=== PATIENT | female | born 1970 | race Caucasian/White ===

== ENCOUNTER 2017-09-18 19:02 | Inpatient (IN) | payer BC ==
[2017-09-18] MEDS ORDERED: Hydromorphone 1 mg/ml Ampule IV ONE (19:49)
[2017-09-18] MEDS ORDERED: Sodium Chloride 0.9% 1000 ML 1,000 ML IV STA (19:49)
[2017-09-18] MEDS ORDERED: Pepcid 20 MG VIAL IV ONE ×2 (19:49→20:10)
[2017-09-18] MEDS ORDERED: BENADRYL 50 MG/ML IV ONE (19:49)
[2017-09-18] MEDS ORDERED: FLAGYL 500 MG IVPB 500 MG/100 ML BAG IV STA (19:50)
[2017-09-18] MEDS ORDERED: Zosyn 3.375GM/100 Ml D5W 3.375 GM/100 ML IVPB IV STA (19:50)
--- NOTE | 2017-09-18 19:54 | ERPHSYRPT ---
- History of Present Illness Time Seen by Provider: 09/18/17 19:41 Historian: patient Patient Subjective Stated Complaint: Pt C/O left abd pain that is constant in nature x 2 days. Hx of diverticulitis and diverticulosis. Had surgery and removed approx 16" of intestine due to diverticulitits in 2011. Pt with 2 days of fever abd pain and nausea. Pt sts took ibuprofen for fever at 1700. Denies vomiting. Denies diarrhea. Last BM today. Does not feel like she is constipated. Reports last food intake 1100, last fluids 1800. Reports pain is 3/10 at present but does increase with certain movements to 8/10. Triage Nursing Assessment: Pt alert, oriented, answers all questions appropriately. Skin pink, warm, dry. Resps non-labored. Lung sounds clear all lazaro. ABD soft, mildly tender with palpation left abd. + bowel sounds x 4 quadrants. Physician History: CC: abd pain Hx: 47 y/o patient of Dr Chavez/Daphnie with hx of diverticulitis, prior bowel resection, hysterectomy. She has 3 day hx of worsened left sided abd pain, sharp , now feverish. No blood in stool. Pain worse and moderately severe. No vomiting. Normal urination. 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 Timing/Duration: day(s) (3) Severity of Pain-Max: moderate Severity of Pain-Current: moderate Allergies/Adverse Reactions: tetracycline [Tetracycline] Allergy (Intermediate, Verified 09/18/17 19:48) Home Medications: Sertraline HCl 100 mg [Zoloft 100 MG] 100 mg PO HS 02/18/12 [History] Topiramate [Topamax] 100 mg PO BID 07/22/12 [History] Alprazolam 0.25 mg [xanAX 0.25 MG] 0.25 mg PO BID PRN PRN 07/23/12 [ History] Levothyroxine Sodium 25 mg PO DAILY 09/18/17 [History] Losartan Potassium [Losartan Potassium] 1 tab PO DAILY 09/18/17 [History] Ranitidine HCl 150 mg PO BID 09/18/17 [History] Hx Tetanus, Diphtheria Vaccination/Date Given: Yes Hx Influenza Vaccination/Date Given: No Hx Pneumococcal Vaccination/Date Given: No Immunizations Up to Date: Yes - Review of Systems Constitutional: Fever, Chills, Fatigue, Malaise Eyes: No Symptoms Ears, Nose, & Throat: No Symptoms Respiratory: No Cough, No Dyspnea Cardiac: No Chest Pain Abdominal/Gastrointestinal: Abdominal Pain, Nausea, No Vomiting, No Diarrhea, No Constipation Genitourinary Symptoms: No Dysuria, No Hematuria Musculoskeletal: No Back Pain Skin: No Rash Neurological: No Headache All Other Systems: Reviewed and Negative - Past Medical History Pertinent Past Medical History: Yes Neurological History: Migraines, Seizures, Other ENT History: No Pertinent History Cardiac History: Hypertension Respiratory History: No Pertinent History Endocrine Medical History: No Pertinent History Musculoskeletal History: No Pertinent History GI Medical History: Colitis, Diverticulitis, Other History: No Pertinent History Psycho-Social History: No Pertinent History Female Reproductive Disorders: Other Other Medical History: MASS ON RIGHT OVARY, left oophorectomy, insulin resistant , hashimotos - Past Surgical History Past Surgical History: Yes Neuro Surgical History: No Pertinent History Cardiac: No Pertinent History Respiratory: No Pertinent History Gastrointestinal: Appendectomy, Cholecystectomy, Colon Resection Genitourinary: No Pertinent History Musculoskeletal: No Pertinent History Female Surgical History: Section, Hysterectomy, Other Other Surgical History: 2 MASSES OFF UTERUS left oophorectomy - Social History Smoking Status: Never smoker Exposure to second hand smoke: No Drug Use: none Patient Lives Alone: No - Female History Hx Last Menstrual Period: partial hyst Hx Now: No - Nursing Vital Signs Nursing Vital Signs: Initial Vital Signs Temperature 102.2 F 09/18/17 19:36 Pulse Rate 115 H 09/18/17 19:36 Respiratory Rate 20 09/18/17 19:36 Blood Pressure 145/88 09/18/17 19:36 O2 Sat by Pulse Oximetry 97 09/18/17 19:36 Pain Scale Pain Intensity 2 - Physical Exam General Appearance: alert Eye Exam: PERRL/EOMI, No scleral icterus Ears, Nose, Throat Exam: normal ENT inspection, moist mucous membranes Neck Exam: normal inspection, non-tender, supple Respiratory Exam: normal breath sounds Cardiovascular Exam: regular rate/rhythm Gastrointestinal/Abdomen Exam: soft, tenderness (left sided with guarding) Back Exam: normal inspection, No CVA tenderness Extremity Exam: normal inspection, normal range of motion Neurologic Exam: alert, oriented x 3, cooperative, sensation nml, No motor deficits Skin Exam: warm, dry, No rash SpO2 Interpretation: normal SpO2: 99 Oxygen Delivery: Room Air - Course Nursing assessment & vital signs reviewed: Yes EKG Interpreted by Me: RATE (94), Sinus Rhythm, NORMAL AXIS, NORMAL INTERVALS ( [id number]), NORMAL QRS, NORMAL ST-T - Radiology Exams cxr X-ray Interpretation: Interpreted by me, Negative Ordered Tests: Active Orders 24 hr Category Date Time Status Clean Catch Urine Specimen STAT Care 09/18/17 19:49 Active EKG-ER Only STAT Care 09/18/17 19:49 Active IV Insertion STAT Care 09/18/17 19:49 Active NPO (ED) STAT Care 09/18/17 19:49 Active ABDOMEN AND PELVIS W CONTRAST [CT] Stat Exams 09/18/17 19:49 Taken CHEST 2 VIEWS (PA AND LAT) Stat Exams 09/18/17 19:49 Taken BLOOD CULTURE Stat Lab 09/18/17 20:13 Received CBC W DIFF Stat Lab 09/18/17 20:13 Completed CMP Stat Lab 09/18/17 20:13 Completed LIPASE Stat Lab 09/18/17 20:13 Completed Lactic Acid Stat Lab 09/18/17 20:05 Completed PROTIME WITH INR Stat Lab 09/18/17 20:13 Received PTT Stat Lab 09/18/17 20:13 Received UA W/ MICROSCOPIC Stat Lab 09/18/17 20:13 Completed Medication Summary Discontinued Medications Generic Name Dose Route Start Last Admin Trade Name Freq PRN Reason Stop Dose Admin Acetaminophen 975 mg 09/18/17 20:12 09/18/17 20:48 Feverall 650 Mg OK 09/18/17 20:13 975 mg STAT STA Administration Acetaminophen Confirm 09/18/17 20:46 Feverall 650 Mg Administered 09/18/17 20:47 Dose 1,300 mg .ROUTE .STK-MED ONE Diphenhydramine HCl 25 mg 09/18/17 19:49 09/18/17 20:29 Benadryl 50 Mg/Ml IV 09/18/17 19:50 25 mg STAT ONE Administration Diphenhydramine HCl Confirm 09/18/17 20:10 Benadryl 50 Mg/Ml Administered 09/18/17 20:11 Dose 50 mg .ROUTE .STK-MED ONE Famotidine 20 mg 09/18/17 19:49 09/18/17 20:38 Pepcid 20 Mg Vial IV 09/18/17 19:50 20 mg STAT ONE Administration Famotidine Confirm 09/18/17 20:10 Pepcid 20 Mg Vial Administered 09/18/17 20:11 Dose 20 mg IV .STK-MED ONE Hydromorphone HCl 1 mg 09/18/17 19:49 09/18/17 20:36 Hydromorphone 1 Mg/Ml Ampule IV 09/18/17 19:50 1 mg STAT ONE Administration Hydromorphone HCl Confirm 09/18/17 20:10 Hydromorphone 1 Mg/Ml Ampule Administered 09/18/17 20:11 Dose 1 mg .ROUTE .STK-MED ONE Metronidazole 500 mg in 100 mls @ 200 mls/hr 09/18/17 19:50 09/18/17 21:30 Flagyl 500 Mg Ivpb IV 09/18/17 20:19 200 mls/hr STAT STA Administration Sodium Chloride 1,000 mls @ 999 mls/hr 09/18/17 19:49 09/18/17 20:26 Sodium Chloride 0.9% 1000 Ml IV 09/18/17 20:49 999 mls/hr .Q1H1M STA Administration Piperacillin Sod/Tazobactam Sod 3.375 gm in 100 mls @ 200 mls/hr 09/18/17 19: 50 09/18/17 20:35 Zosyn 3.375gm/100 Ml D5w IV 09/18/17 20:19 200 mls/hr STAT STA Administration Sodium Chloride Confirm 09/18/17 20:10 Sodium Chloride 0.9% 1000 Ml Administered 09/18/17 20:11 Dose 1,000 mls @ ud .ROUTE .STK-MED ONE Piperacillin Sod/Tazobactam Sod Confirm 09/18/17 20:11 Zosyn 3.375gm/100 Ml D5w Administered 09/18/17 20:12 Dose 3.375 gm in 100 mls @ ud IV .STK-MED ONE Metronidazole Confirm 09/18/17 20:11 Flagyl 500 Mg Ivpb Administered 09/18/17 20:12 Dose 500 mg in 100 mls @ ud IV .STK-MED ONE Lab/Rad Data: Laboratory Result Diagrams 09/18/17 20:13 09/18/17 20:13 Laboratory Results 09/18/17 09/18/17 09/18/17 Range/Units 20:13 20:13 20:13 WBC 11.7 H (4.0-10.5) K/mm3 RBC 4.37 (4.1-5.4) M/mm3 Hgb 12.9 (12.0-16.0) gm/dl Hct 39.1 (35-47) % MCV 89.5 (78-100) fl MCH 29.5 (26-32) pg MCHC 33.0 (32-36) g/dl RDW 13.4 (11.5-14.0) % Plt Count 252 (150-450) K/mm3 MPV 10.4 H (6-9.5) fl Gran % 70.5 H (36.0-66.0) % Lymphocytes % 21.4 L (24.0-44.0) % Monocytes % 7.0 (0.0-12.0) % Eosinophils % 1.0 (0.00-5.0) % Basophils % 0.1 (0.0-0.4) % Basophils # 0.01 (0-0.4) Sodium 139 (136-145) mEq/L Potassium 3.8 (3.5-5.1) mEq/L Chloride 103 (98-107) mEq/L Carbon Dioxide 26.2 (21-32) mEq/L Anion Gap 13.4 (5-15) MEQ/L BUN 11 (9-20) mg/dL Creatinine 1.07 (0.55-1.30) mg/dl Estimated GFR 58 ML/MIN Glucose 118 H (70-110) MG/DL Lactic Acid (0.4-2.0) Calcium 9.2 (8.5-10.1) mg/dL Total Bilirubin 1.20 H (0.2-1.0) mg/dL AST 18 (15-37) U/L ALT 23 (12-78) U/L Alkaline Phosphatase 97 (46-116) U/L Serum Total Protein 8.2 (6.4-8.2) gm/dL Albumin 3.8 (3.4-5.0) g/dL Lipase 200 (73-393) U/L Ur Collection Type CLEAN CATCH Urine Color YELLOW (YELLOW) Urine Appearance SLIGHTLY CLOUDY (CLEAR) Urine pH 7.0 (5-6) Ur Specific [place] 1.005 (1.005-1.025) Urine Protein NEGATIVE (Negative) Urine Ketones NEGATIVE (NEGATIVE) Urine Blood TRACE NON-HEM (0-5) Yemi/ul Urine Nitrite NEGATIVE (NEGATIVE) Urine Bilirubin NEGATIVE (NEGATIVE) Urine Urobilinogen 1 (0-1) mg/dL Ur Leukocyte Esterase NEGATIVE (NEGATIVE) Urine Microscopic RBC 10-15 (0-2) /HPF Urine Microscopic WBC 0-2 (0-5) /HPF Ur Epithelial Cells MODERATE (FEW) /HPF Urine Bacteria MODERATE (NEGATIVE) /HPF Urine Mucus SLIGHT (NEGATIVE) /HPF Urine Culture Reflexed NO (NO) Urine Glucose NEGATIVE (NEGATIVE) mg/dL Specimen Received 09/18/17 2030 09/18/17 Range/Units 20:05 WBC (4.0-10.5) K/mm3 RBC (4.1-5.4) M/mm3 Hgb (12.0-16.0) gm/dl Hct (35-47) % MCV (78-100) fl MCH (26-32) pg MCHC (32-36) g/dl RDW (11.5-14.0) % Plt Count (150-450) K/mm3 MPV (6-9.5) fl Gran % (36.0-66.0) % Lymphocytes % (24.0-44.0) % Monocytes % (0.0-12.0) % Eosinophils % (0.00-5.0) % Basophils % (0.0-0.4) % Basophils # (0-0.4) Sodium (136-145) mEq/L Potassium (3.5-5.1) mEq/L Chloride (98-107) mEq/L Carbon Dioxide (21-32) mEq/L Anion Gap (5-15) MEQ/L BUN (9-20) mg/dL Creatinine (0.55-1.30) mg/dl Estimated GFR ML/MIN Glucose (70-110) MG/DL Lactic Acid 1.1 (0.4-2.0) Calcium (8.5-10.1) mg/dL Total Bilirubin (0.2-1.0) mg/dL AST (15-37) U/L ALT (12-78) U/L Alkaline Phosphatase (46-116) U/L Serum Total Protein (6.4-8.2) gm/dL Albumin (3.4-5.0) g/dL Lipase (73-393) U/L Ur Collection Type Urine Color (YELLOW) Urine Appearance (CLEAR) Urine pH (5-6) Ur Specific [place] (1.005-1.025) Urine Protein (Negative) Urine Ketones (NEGATIVE) Urine Blood (0-5) Yemi/ul Urine Nitrite (NEGATIVE) Urine Bilirubin (NEGATIVE) Urine Urobilinogen (0-1) mg/dL Ur Leukocyte Esterase (NEGATIVE) Urine Microscopic RBC (0-2) /HPF Urine Microscopic WBC (0-5) /HPF Ur Epithelial Cells (FEW) /HPF Urine Bacteria (NEGATIVE) /HPF Urine Mucus (NEGATIVE) /HPF Urine Culture Reflexed (NO) Urine Glucose (NEGATIVE) mg/dL Specimen Received - Progress Progress Note: 09/18/17 19:54 She has SIRS and likely diverticulitis. Abtx and IVF started. Will get CT to assess for diverticulitis severity and to rule out abscess or perforation. She will likely need hospitalization. 09/18/17 21:46 CT abd/pelvis: bon 9:42 PM 09/18/2017: Compared to 06/26/17. New finding mild descending colonic diverticulitis w/o complications. Stable fatty liver, 14cm splenomegaly, & tiny L renal cyst. 09/18/17 22:[address] Davis for Kathy. Will admit to IP for IV abtx and treatment of acute diverticulitis. Discussed with : Ryan Will see patient in: hospital (full admit) Counseled pt/family regarding: lab results, diagnosis, need for follow-up, rad results - Departure Time of Disposition: 22:05 Departure Disposition: In-patient Admission Clinical Impression: Acute diverticulitis Condition: Fair Critical Care Time: No Referrals: SHERRON CHAVEZ [Primary Care Provider] -
[2017-09-18] MEDS ORDERED: BENADRYL 50 MG/ML ONE (20:10)
[2017-09-18] MEDS ORDERED: Sodium Chloride 0.9% 1000 ML 1,000 ML ONE (20:10)
[2017-09-18] MEDS ORDERED: Hydromorphone 1 mg/ml Ampule ONE (20:10)
[2017-09-18] MEDS ORDERED: Zosyn 3.375GM/100 Ml D5W 3.375 GM/100 ML IVPB IV ONE (20:11)
[2017-09-18] MEDS ORDERED: FLAGYL 500 MG IVPB 500 MG/100 ML BAG IV ONE (20:11)
[2017-09-18] MEDS ORDERED: FEVERALL 650 MG PR STA (20:12)
[2017-09-18 20:17] LABS: BASOPHIL % 0.1 % (0.0-0.4); Basophil (Absolute #) 0.01 (0-0.4); Eosinophil (Absolute #) 0.12 (0-0.5); Granulocyte Absolute (ANC) 8.27 (1.4-6.9); Granulocytes % 70.5 % (36.0-66.0); Hematocrit 39.1 % (35-47); Hemoglobin 12.9 gm/dl (12.0-16.0); Lymphocyte (Absolute #) 2.51 (1.0-4.6); Lymphocytes % 21.4 % (24.0-44.0); Mean Cell Volume 89.5 fl (78-100); Mean Corpuscular Hemoglobin 29.5 pg (26-32); Mean Platelet Volume 10.4 fl (6-9.5); Monocyte (Absolute #) 0.82 (0.0-1.3); Platelet Count 252 K/mm3 (150-450); Red Blood Count 4.37 M/mm3 (4.1-5.4); Red Cell Distribution Width 13.4 % (11.5-14.0); White Blood Count 11.7 K/mm3 (4.0-10.5)
[2017-09-18 20:36] LABS: ALBUMIN 3.8 g/dL (3.4-5.0); ANION GAP 13.4 MEQ/L (5-15); BILIRUBIN,TOTAL 1.2 mg/dL (0.2-1.0); Calcium 9.2 mg/dL (8.5-10.1); Carbon Dioxide 26.2 mEq/L (21-32); Creatinine 1 1.07 mg/dl (0.55-1.30); Potassium 3.8 mEq/L (3.5-5.1); Total Protein 8.2 gm/dL (6.4-8.2)
[2017-09-18] MEDS ORDERED: FEVERALL 650 MG ONE (20:46)
[2017-09-18 20:58] LABS: Appearance SLIGHTLY CLOUDY (CLEAR); Bilirubin NEGATIVE (NEGATIVE); Blood TRACE NON-HEM Ery/ul (0-5); Glucose NEGATIVE (NEGATIVE); Ketones NEGATIVE (NEGATIVE); Leukocyte Esterase NEGATIVE (NEGATIVE); Nitrite NEGATIVE (NEGATIVE); Protein,Urine Dip NEGATIVE (Negative); Specific Gravity 1.005 (1.005-1.025); Urobilinogen 1 mg/dL (0-1)
[2017-09-18 20:59] LABS: Bacteria MODERATE /HPF (NEGATIVE); Epithelial Cells MODERATE /HPF (FEW); Mucus SLIGHT /HPF (NEGATIVE); WBC 0-2 /HPF (0-5)
[2017-09-18] MEDS ORDERED: Sodium Chloride 0.9% W/ 20 mEq KCl/LITER 1,000 ML IV SCH (23:01)
[2017-09-18] MEDS ORDERED: NovoLOG Insulin SQ PRN (23:01)
[2017-09-18] MEDS ORDERED: TYLENOL 325 MG PO PRN (23:01)
[2017-09-18 23:36] LABS: INR 1.02 (0.8-3.0)
[2017-09-18 23:38] LABS: PTT 31.4 SECONDS (25.3-37.0)
[2017-09-19] MEDS: Zosyn 3.375GM/100 Ml D5W 3.375 GM/100 ML IVPB IV SCH ×5 (03:02→23:55)
[2017-09-19] MEDS: DILAUDID 2 MG INJECTION IV PRN ×4 (03:03→21:36)
[2017-09-19] MEDS: FLAGYL 500 MG IVPB 500 MG/100 ML BAG IV SCH ×5 (04:51→21:37)
[2017-09-19 07:16] LABS: BASOPHIL % 0.1 % (0.0-0.4); Basophil (Absolute #) 0.01 (0-0.4); Eosinophil % 1.6 % (0.00-5.0); Eosinophil (Absolute #) 0.12 (0-0.5); Granulocyte Absolute (ANC) 4.61 (1.4-6.9); Granulocytes % 59.6 % (36.0-66.0); Hematocrit 35.3 % (35-47); Hemoglobin 11.5 gm/dl (12.0-16.0); Lymphocyte (Absolute #) 2.37 (1.0-4.6); Lymphocytes % 30.7 % (24.0-44.0); Mean Cell Volume 91.2 fl (78-100); Mean Corpuscular Hemoglobin 29.7 pg (26-32); Mean Corpuscular Hgb Concent. 32.6 g/dl (32-36); Mean Platelet Volume 10.4 fl (6-9.5); Monocyte (Absolute #) 0.62 (0.0-1.3); Platelet Count 192 K/mm3 (150-450); Red Blood Count 3.87 M/mm3 (4.1-5.4); Red Cell Distribution Width 13.6 % (11.5-14.0); White Blood Count 7.7 K/mm3 (4.0-10.5)
[2017-09-19 08:23] LABS: ALBUMIN 3.2 g/dL (3.4-5.0); ALKALINE PHOSPHATASE 78 U/L (46-116); ANION GAP 11.3 MEQ/L (5-15); BLOOD UREA NITROGEN 11 mg/dL (9-20); CHLORIDE 106 mEq/L (98-107); Calcium 8.8 mg/dL (8.5-10.1); Carbon Dioxide 27.5 mEq/L (21-32); Creatinine 1 0.96 mg/dl (0.55-1.30); EST GLOMERULAR FILTRATION RATE > 60 ML/MIN; Glucose 113 MG/DL (70-110); Potassium 3.8 mEq/L (3.5-5.1); SGOT/AST 20 U/L (15-37); SGPT/ALT 22 U/L (12-78); SODIUM 141 mEq/L (136-145); Total Protein 7.1 gm/dL (6.4-8.2)
--- NOTE | 2017-09-19 09:14 | XRAY ---
Indication: Left abdominal pain and nausea. History of diverticulitis. Multiple contiguous axial images obtained through the abdomen and pelvis using 80 cc Isovue 370 contrast only. Comparison: June 26, 2017. Lung bases remain clear. Heart is not enlarged. Noncontrasted stomach and bowel loops appear nonobstructed. Again scattered descending and sigmoid diverticulosis. Descending colon now demonstrates mild pericolonic stranding favoring diverticulitis. No free fluid/air. Spleen remains enlarged today measuring 14 cm in greatest axial dimension. Stable fatty liver, tiny left renal cyst, cholecystectomy, hysterectomy, and reported appendectomy. Remaining liver, gallbladder, pancreas, spleen, adrenal glands, kidneys, ureters, and bladder appear unremarkable. Again mild aortoiliac calcifications. No AAA or pathologic retroperitoneal lymphadenopathy. Osseous structures intact. Impression: 1. Again descending/sigmoid diverticulosis with now mild descending diverticulitis. No complications. 2. There remains incidental splenomegaly, fatty liver, and left renal cyst. CT DI 23.68
--- NOTE | 2017-09-19 09:16 | XRAY ---
Indication: Fever and abdominal pain. Comparison: December 18, 2016. PA/lateral chest again demonstrates normal heart, lungs, and bony thorax.
[2017-09-19] MEDS ORDERED: xanAX 0.25 MG PO PRN (09:30)
[2017-09-19] MEDS ORDERED: LOSARTAN POTASSIUM PO SCH (10:00)
[2017-09-19] MEDS ORDERED: FLUCELVAX QUAD 2017-2018 SYR IM ONE (10:00)
[2017-09-19] MEDS ORDERED: NON-FORMULARY ITEM (Ranitidine Hcl [Ranitidine Hcl] 150 MG) PO SCH (10:00)
[2017-09-19] MEDS ORDERED: Pepcid 20 MG VIAL IV SCH (10:00)
[2017-09-19] MEDS ORDERED: TOPIRAMATE 100 MG PO SCH (10:00)
[2017-09-19] MEDS: ENOXAPARIN SODIUM SQ SCH (10:41)
[2017-09-19] MEDS: Pepcid 20 MG PO SCH ×2 (10:41→21:36)
[2017-09-19] MEDS: ZOLOFT 50 MG TABLET PO SCH (10:42)
[2017-09-19] MEDS: Cozaar 50 MG PO SCH (10:42)
[2017-09-19] MEDS: Topamax 100 MG PO SCH ×2 (10:42→21:36)
[2017-09-19] MEDS: SYNTHROID 25 MCG PO SCH (10:42)
[2017-09-19] MEDS ORDERED: Dextrose 5% -0.45 NaCl 1000 ML 1,000 ML IV SCH (13:00)
--- NOTE | 2017-09-19 14:15 | HP ---
HISTORY OF PRESENT ILLNESS: This is a 47 y/o patient of Dr. Chavez'mil who presented to the Emergency Department with left lower quadrant pain and fever. She reports she started to have some left lower quadrant pain 2 days ago that became worse and then she had a temperature over 100.4 at home and decided to come in to the Emergency Department for evaluation and treatment. She has a history of diverticulitis even requiring a resection of her bowel in 2011. She reports she has done fairly well since then. She reports having a normal stool yesterday. No diarrhea. No blood in her stool, but having continued left lower quadrant pain. She had some nausea on her ride down from [email or web address], but no vomiting. She reports her pain is controlled with the IV pain medication and she is feeling better. She is getting ready to try her clear liquid breakfast. REVIEW OF SYSTEMS: She denies any chest pain or shortness of breath. No lower extremity edema. No rashes. Otherwise, Review of Systems as noted in the HPI. PAST MEDICAL HISTORY: History of diverticulosis and diverticulitis. Hypothyroidism, hypertension, and gastroesophageal reflux. Migraine headaches, anxiety. SURGICAL HISTORY: Bowel resection with Dr. Eller in 2011 for diverticulitis and diverticulosis. Hysterectomy, cholecystectomy. She also has a history of a benign tumor being removed from her uterus before her hysterectomy. SOCIAL HISTORY: She denies any tobacco or alcohol use. FAMILY HISTORY: Noncontributory. CURRENT MEDICATIONS: Levothyroxine 25 mcg PO daily, Losartan 100 mg PO daily, ranitidine 150 mg PO bid, Topamax 100 mg PO bid, alprazolam 0.25 mg PO bid PRN, sertraline 100 mg PO q HS. ALLERGIES: TETRACYCLINE. PHYSICAL EXAMINATION: VITAL SIGNS: Temperature current 97.7, temperature maximum 102.2, heart rate 67-115, currently 67, respiratory rate 16-20, O2 saturation 94-99% on room air, BP 110-145/61-88. GENERAL: The patient is lying in bed a pleasant, talkative lady in no acute distress. CVS: She has a regular rate and rhythm. No murmurs, gallops, or rubs are appreciated. CHEST: Clear to auscultation bilaterally. No crackles or wheezes. Equal breath sounds. ABDOMEN: She has normal bowel sounds. Mild tenderness in the left lower quadrant. No guarding. No rigidity. Her abdomen is soft. EXTREMITIES: No clubbing, cyanosis, or edema. SKIN: Warm, dry, and intact. LABORATORY DATA: Her WBC was 11,700. Repeat WBC was 7700. Hgb this AM 11.5. CMP revealed a bilirubin of 1.4 and albumin of 3.2 this morning. UA had moderate bacteria, 0-2 WBC. Blood cultures are in lab X 2. CT of her abdomen and pelvis was read as descending/sigmoid diverticulosis with now mild descending diverticulitis. No complications. Incidental splenomegaly, fatty liver, and left renal cyst. Please see the radiologist's dictation for the full report. ASSESSMENT AND PLAN: 1. ACUTE DIVERTICULITIS. She was started on metronidazole and Zosyn. I have continued these antibiotics. She has been on IV fluids and her pain is controlled with IV Dilaudid PRN. Will continue with these treatments. She has a clear liquid diet ordered and will advance this if tolerated. 2. HYPERTENSION. This is currently well controlled on her home antihypertensive. 3. HYPOTHYROIDISM: Will continue with levothyroxine. 4. ANXIETY: Will continue with her home medications. 5. DEEP VEIN THROMBOSIS PROPHYLAXIS. Will start her on Lovenox 40 mg subq daily and ROBERTO hose.
[2017-09-19] MEDS ORDERED: NON-FORMULARY ITEM (Sertraline Hcl 100 Mg [Zoloft 100 Mg] 100 MG) PO SCH (22:00)
[2017-09-20] MEDS: FLAGYL 500 MG IVPB 500 MG/100 ML BAG IV SCH ×2 (04:09→10:07)
[2017-09-20] MEDS: Zosyn 3.375GM/100 Ml D5W 3.375 GM/100 ML IVPB IV SCH (05:50)
--- NOTE | 2017-09-20 09:12 | PCM.DCORD ---
- Discharge Discharge Date: 09/20/17 Disposition: Home, Self-Care Condition: Good Prescriptions: New Amoxicillin/Potassium Clav [Augmentin 875-125 Tablet] 1 each PO TID #21 tablet Docusate Sodium 1 cap PO BID PRN #60 capsule PRN Reason: Constipation Metronidazole 500 mg [Flagyl 500 MG] 500 mg PO QID #28 tablet Hydrocodone/Acetaminophen [Hydrocodone-Acetamin 5-325 mg] 1 each PO QID PRN # 20 tablet MDD 4 PRN Reason: Pain Acetaminophen 325 mg [Tylenol 325 mg] 650 mg PO Q4H PRN PRN tablet PRN Reason: Pain And/Or Fever Continue Sertraline HCl 100 mg [Zoloft 100 MG] 100 mg PO HS Topiramate [Topamax] 100 mg PO BID Alprazolam 0.25 mg [xanAX 0.25 MG] 0.25 mg PO BID PRN PRN PRN Reason: Anxiety Ranitidine HCl 150 mg PO BID Losartan Potassium 1 tab PO DAILY Levothyroxine Sodium 25 mg PO DAILY Follow up with: SHERRON MENA [Primary Care Provider] - Forms: Patient Portal Information
[2017-09-20] MEDS: SYNTHROID 25 MCG PO SCH (10:04)
[2017-09-20] MEDS: Topamax 100 MG PO SCH (10:04)
[2017-09-20] MEDS: Cozaar 50 MG PO SCH (10:04)
[2017-09-20] MEDS: ZOLOFT 50 MG TABLET PO SCH (10:04)
[2017-09-20] MEDS: ENOXAPARIN SODIUM SQ SCH (10:05)
[2017-09-20] MEDS: Pepcid 20 MG PO SCH (10:05)
--- NOTE | 2017-09-20 10:18 | DS ---
DISCHARGE DIAGNOSIS: 1. ACUTE DIVERTICULITIS. 2. HYPERTENSION. 3. HYPOTHYROIDISM. 4. ANXIETY. DISCHARGE PHYSICAL EXAM: VITALS: Temperature current 97.6, temperature maximum 99.4, heart rate 65-73, respiratory rate 16-20, O2 saturation 96-98% on room air, BP 105-133/58-68. GENERAL: The patient is a pleasant, talkative lady sitting up in no acute distress. CVS: She has a regular rate and rhythm. No murmurs, gallops, or rubs are appreciated. CHEST: Clear to auscultation bilaterally. No crackles or wheezes. ABDOMEN: Soft with mild left lower quadrant tenderness. No guarding. No rigidity. Normal bowel sounds. EXTREMITIES: No clubbing, cyanosis, or edema. SKIN: Warm, dry, and intact. HOSPITAL COURSE: 1. Acute diverticulitis. She was started on IV metronidazole and IV Zosyn which were continued during her hospitalization. She reports her pain has improved for being along her whole left abdominal area to just a small area in the left lower quadrant. She has been able to take liquids by mouth and ambulate in her room well. She had a little bit of nausea last night, but no vomiting. I will plan to discharge her to home on oral antibiotics with Augmentin 1 tab PO tid for 7 days and metronidazole 500 mg PO qid for 7 days. Will have her follow-up in the clinic with either myself or her primary care doctor, Dr. Chavez, this coming week. She was given Dilaudid PRN during her hospitalization for pain. I have written a prescription for hydrocodone 5/325 1 tab PO qid PRN pain, #20 with no refills and she is not to drive while taking this medication. Her WBC had normalized on 09/19/17 at 7.7. 2. Hypertension. Her BP was well controlled during her hospitalization and she was continued on her home antihypertensive medication. 3. Hypothyroidism. During her hospitalization, she was continued on her home dose of levothyroxine. 4. Anxiety. She was continued on her home antianxiety medications and this was well controlled during her hospitalization. DISPOSITION: Patient was discharged to home in good condition. DISCHARGE MEDICATIONS: She is resuming all her home medications and taking the metronidazole and Augmentin as described above as well as hydrocodone 5/325 PRN and docusate 100 mg PO bid PRN constipation.
[2017-09-20 11:40] VITALS: BP 134/76; PULSE 69; O2SAT 98
== END 2017-09-20 10:59 | disposition home or self-care (01) | DRG 392 ==
LOC: ED 19:02 → MED SURG 22:49
PROVIDERS: ADMIT Family Medicine; ATTEND Family Medicine
DX: K57.92 Diverticulitis of intestine, part unspecified, without perforation or abscess without bleeding (principal); I10 Essential (primary) hypertension; E03.9 Hypothyroidism, unspecified; F41.9 Anxiety disorder, unspecified; K21.9 Gastro-esophageal reflux disease without esophagitis; Z79.899 Other long term (current) drug therapy
CPT/HCPCS: 36000; 36415; 71020; 74177; 80053; 81000; 82962; 83036; 83605; 83690; 85025; 85610; 85730; 87040; 93005; 96360; 96361; 96365; 96367; 96374; 96375; 99285; J1170; J1200; J1650; J2543; A9270-GY

== ENCOUNTER 2020-10-13 11:13 | Day surgery (SDC) | payer BC ==
[2013-06-03 12:16] VITALS: BP 156/84
[2020-10-13] MEDS ORDERED: Depo-Medrol 40 MG/ML IM ONE (11:14)
[2020-10-13] MEDS ORDERED: DIPRIVAN 200 MG/20 ML IV ONE (13:12)
[2020-10-13] MEDS ORDERED: Ketamine HCl 50 MG/ML ONE (13:12)
--- NOTE | 2020-10-13 14:30 | XRAY ---
Indication: Bilateral SI joint injection. Intraoperative fluoroscopy provided for 21 seconds. 4 digital spot images submitted for interpretation demonstrates posterior needle tip projecting over the inferior left and right SI joint. Correlate with intraoperative findings/report.
[2020-10-13] MEDS ORDERED: Lactated Ringers 1,000 ML IV ONE (15:03)
--- NOTE | 2020-10-13 16:52 | XRAY ---
21 seconds of fluoroscopy was used in surgery for a bilateral SI joint injection.
== END 2020-10-13 13:45 | disposition home or self-care (01) ==
LOC: SDC-PAIN 11:13
PROVIDERS: ATTEND Psychiatry & Neurology Pain Medicine
DX: M46.1 Sacroiliitis, not elsewhere classified (principal); G47.30 Sleep apnea, unspecified; M79.7 Fibromyalgia; K57.92 Diverticulitis of intestine, part unspecified, without perforation or abscess without bleeding; Z85.828 Personal history of other malignant neoplasm of skin; Z79.899 Other long term (current) drug therapy
CPT/HCPCS: 64493; 64494; 72202; 77002; J1030; J2704

== ENCOUNTER 2020-11-24 09:31 | Day surgery (SDC) | payer BC ==
[2013-06-03 12:16] VITALS: BP 156/84
[2020-11-24] MEDS ORDERED: LIDOCAINE HCL 2% 100 MG/5 ML IJ ONE (09:32)
[2020-11-24] MEDS ORDERED: Ketamine HCl 50 MG/ML ONE (11:27)
[2020-11-24] MEDS ORDERED: DIPRIVAN 200 MG/20 ML IV ONE (11:27)
--- NOTE | 2020-11-24 11:58 | XRAY ---
Indication: Right L3-S1 MBB. Intraoperative fluoroscopy provided for 11 seconds. Single digital spot image submitted for interpretation demonstrates posterior needle tips projecting over the expected right L3-S1 nerve roots. Correlate with intraoperative findings/report.
--- NOTE | 2020-11-24 14:11 | XRAY ---
11 seconds fluoroscopy time in surgery for right L3-S1 MBB.
[2020-11-24] MEDS ORDERED: Lactated Ringers 1,000 ML IV ONE (15:01)
== END 2020-11-24 11:51 | disposition home or self-care (01) ==
LOC: SDC-PAIN 09:31
PROVIDERS: ATTEND Psychiatry & Neurology Pain Medicine
DX: M47.816 Spondylosis without myelopathy or radiculopathy, lumbar region (principal); I10 Essential (primary) hypertension; G47.30 Sleep apnea, unspecified; M79.7 Fibromyalgia; K57.92 Diverticulitis of intestine, part unspecified, without perforation or abscess without bleeding; Z85.828 Personal history of other malignant neoplasm of skin; Z79.899 Other long term (current) drug therapy
CPT/HCPCS: 64493; 64494; 64495; 72020; 77002; J2704

== ENCOUNTER 2021-01-26 14:16 | Day surgery (SDC) | payer BC ==
[2013-06-03 12:16] VITALS: BP 156/84
[2021-01-26] MEDS ORDERED: Depo-Medrol 40 MG/ML IM ONE (14:17)
[2021-01-26] MEDS ORDERED: Sodium Chloride 0.9(Preservative Free) 10 ML IJ ONE (14:17)
[2021-01-26] MEDS ORDERED: DIPRIVAN 200 MG/20 ML IV ONE (15:40)
[2021-01-26] MEDS ORDERED: Lactated Ringers 1,000 ML IV ONE (16:06)
--- NOTE | 2021-01-26 16:26 | XRAY ---
Indication: Right L3-S1 transforaminal NAVIN. Intraoperative fluoroscopy provided for 25 seconds. 5 digital spot images submitted for interpretation demonstrates posterior needle tips projecting over the expected right L3 and L4 nerve roots. Small amount of contrast injected for needle tip placement. Correlate with intraoperative findings/report.
--- NOTE | 2021-01-26 16:34 | XRAY ---
25 seconds fluoroscopy time in surgery for right L3-L5 transforaminal NAVIN.
== END 2021-01-26 16:07 | disposition home or self-care (01) ==
LOC: SDC-PAIN 14:16
PROVIDERS: ATTEND Psychiatry & Neurology Pain Medicine
DX: M54.16 Radiculopathy, lumbar region (principal); I10 Essential (primary) hypertension; G47.30 Sleep apnea, unspecified; F41.9 Anxiety disorder, unspecified; M79.7 Fibromyalgia; K57.92 Diverticulitis of intestine, part unspecified, without perforation or abscess without bleeding; M19.90 Unspecified osteoarthritis, unspecified site; Z79.899 Other long term (current) drug therapy
CPT/HCPCS: 72100; 77003; J1030; J2704

== ENCOUNTER 2021-03-10 14:14 | Observation (INO) | payer BC ==
[2021-03-10] MEDS ORDERED: MORPHINE SULFATE 4 MG INJ IV ONE ×2 (14:33→17:00)
[2021-03-10] MEDS ORDERED: Zofran 4 MG/2 ML VIAL IV ONE (14:33)
[2021-03-10 14:45] LABS: Absolute Neutrophil Ct (ANC) 8.28 (1.4-6.9); BASOPHIL % 0.2 % (0.0-0.4); Basophil (Absolute #) 0.02 (0-0.4); Eosinophil % 1.5 % (0.00-5.0); Eosinophil (Absolute #) 0.18 (0-0.5); Hematocrit 39.4 % (35-47); Hemoglobin 12.9 gm/dl (12.0-16.0); Lymphocyte (Absolute #) 3.05 (1.0-4.6); Lymphocytes % 24.9 % (24.0-44.0); Mean Cell Volume 91.8 fl (78-100); Mean Corpuscular Hemoglobin 30.1 pg (26-32); Mean Corpuscular Hgb Concent. 32.7 g/dl (32-36); Mean Platelet Volume 10.5 fl (7.5-11.0); Monocyte (Absolute #) 0.71 (0.0-1.3); Monocytes % 5.8 % (0.0-12.0); Neutrophil % 67.6 % (36.0-66.0); Platelet Count 216 K/mm3 (150-450); Red Blood Count 4.29 M/mm3 (4.1-5.4); Red Cell Distribution Width 13.8 % (11.5-14.0); White Blood Count 12.2 K/mm3 (4.0-10.5)
[2021-03-10] MEDS ORDERED: Sodium Chloride 0.9% 1000 ML 1,000 ML IV SCH (14:45)
[2021-03-10] MEDS ORDERED: Zofran 4 MG/2 ML VIAL ONE (14:46)
[2021-03-10] MEDS ORDERED: Sodium Chloride 0.9% 1000 ML 1,000 ML ONE (14:46)
[2021-03-10] MEDS ORDERED: MORPHINE SULFATE 4 MG INJ ONE (14:46)
[2021-03-10 14:50] LABS: Appearance SLIGHTLY CLOUDY (CLEAR); Bacteria RARE /HPF (NEGATIVE); Bilirubin NEGATIVE (NEGATIVE); Blood MODERATE Ery/ul (0-5); Epithelial Cells FEW /HPF (FEW); Glucose NEGATIVE (NEGATIVE); Ketones NEGATIVE (NEGATIVE); Leukocyte Esterase TRACE (NEGATIVE); Mucus SLIGHT /HPF (NEGATIVE); Nitrite NEGATIVE (NEGATIVE); Protein,Urine Dip NEGATIVE (Negative); RBC 0-2 /HPF (0-2); Urobilinogen NEGATIVE mg/dL (0-1)
[2021-03-10 15:09] LABS: ALBUMIN 4.5 g/dL (3.5-5.0); ALKALINE PHOSPHATASE 100 U/L (38-126); ANION GAP 14.8 MEQ/L (5-15); BLOOD UREA NITROGEN 11 mg/dL (7-17); CHLORIDE 105 mmol/L (98-107); Calcium 9.5 mg/dL (8.4-10.2); Carbon Dioxide 23 mmol/L (22-30); Creatinine 1 0.87 mg/dL (0.52-1.04); EST GLOMERULAR FILTRATION RATE > 60.0 ML/MIN; Glucose 100 mg/dL (74-106); LIPASE 246 U/L (23-300); Potassium 3.9 mmol/L (3.5-5.1); SGOT/AST 36 U/L (14-36); SGPT/ALT 30 U/L (0-35); SODIUM 139 mmol/L (137-145); Total Protein 8.1 g/dL (6.3-8.2)
--- NOTE | 2021-03-10 15:26 | XRAY ---
Indication: Abdomen pain. History diverticulitis. Multiple contiguous images obtained through the abdomen and pelvis using 80 cc Isovue 370 contrast. Comparison: September 18, 2017. Lung bases again clear of infiltrate and effusion. Heart is not enlarged. Small left infrahilar calcified node not previously imaged. Noncontrasted stomach and bowel loops are nonobstructed. Again mild left hemicolon colonic diverticulosis. Descending colon again demonstrates mild wall thickening with pericolonic stranding favoring diverticulitis. No free fluid/air. Stable fatty hepatomegaly measuring 26.6 cm with tiny calcified granuloma, splenomegaly measuring 13.9 cm, tiny left renal cyst, cholecystectomy, hysterectomy, and appendectomy. Remaining liver, pancreas, spleen, adrenal glands, kidneys, ureters, and bladder are unremarkable. Stable mild aortoiliac calcifications. No AAA or pathologic retroperitoneal lymphadenopathy. Osseous structures intact. Impression: 1. Again colonic diverticulosis with recurrent mild descending diverticulitis. No complications. 2. Again incidental fatty hepatomegaly, splenomegaly, and left renal cyst.
--- NOTE | 2021-03-10 15:33 | ERPHSYRPT ---
- History of Present Illness Time Seen by Provider: 03/10/21 14:30 Historian: patient Exam Limitations: no limitations Patient Subjective Stated Complaint: "I have been having really bad pains in my left sided abdomen since sunday. It got really worse since last night, I should of came in yesterday. I can't hardly stand it." Triage Nursing Assessment: Pt presents to ER with complaints of lower left sided abdominal pains. Pt states pain is constant, sharp, and stabbing and rates pain 10/10. Pt appears anxious and in pain. Pt is alert and oriented x 3. Able to ambulate in slow shuffle gait while guarding abdomen. Has hx of colon resection r/t diverticulitis in 2011. Pt denies vomiting or diarrhea but complains of nausea. Pt skin is pink, warm, and dry. Physician History: Patient is a 50-year-old female presents to our ED with left lower quadrant pain. Pain started Sunday. Pain has gotten progressively worse. Patient has a history of diverticulitis. She states the symptoms are the same. Pain described as a constant sharp stabbing pain rated 10 out of 10. Patient feels her abdomen is also distended. No trauma. No fever. No nausea vomiting or diarrhea. Patient's last bowel movement was yesterday which was normal. Patient denies associated chest pain. No shortness of breath. Symptoms are moderate in intensity. Movement and palpation to the abdomen worsens symptoms. Patient voices no other complaints or concerns at this time. Timing/Duration: day(s) (2 days) Activities at Onset: none Quality: sharpness, stabbing Abdominal Pain Onset Location: LLQ Severity of Pain-Max: moderate Severity of Pain-Current: mild Modifying Factors: Improves With: palpation Associated Symptoms: fever/chills, No chest pain, No diarrhea, No headache, No heartburn, No loss of appetite, No vomiting, No weakness Previous symptoms: same symptoms as today Allergies/Adverse Reactions: tetracycline [Tetracycline] Allergy (Intermediate, Verified 03/10/21 14:34) Home Medications: Sertraline HCl 100 mg [Zoloft 100 MG] 100 mg PO BID 02/18/12 [History] Topiramate [Topamax] 100 mg PO HS 07/22/12 [History] ALPRAZolam 0.25 MG [xanAX 0.25 MG] 0.5 mg PO TID PRN PRN 07/23/12 [History] Losartan Potassium 1 tab PO HS 09/18/17 [History] Simvastatin 20 mg PO DAILY 03/10/21 [History] Hx Tetanus, Diphtheria Vaccination/Date Given: Yes Hx Influenza Vaccination/Date Given: Yes Hx Pneumococcal Vaccination/Date Given: No Immunizations Up to Date: Yes Travel Risk - International Travel Have you traveled outside of the country in past 3 weeks: No - Coronavirus Screening Are you exhibiting any of the following symptoms?: No Close contact with a COVID-19 positive Pt in past 14-21 Days: No - Vaccine Status Have you recieved a Covid-19 vaccination: No - Review of Systems Constitutional: No Symptoms, No Fever, No Chills Eyes: No Symptoms Ears, Nose, & Throat: No Symptoms Respiratory: No Symptoms, No Cough, No Dyspnea Cardiac: No Symptoms, No Chest Pain, No Edema, No Syncope Abdominal/Gastrointestinal: No Symptoms, No Abdominal Pain, No Nausea, No Vomiting, No Diarrhea Genitourinary Symptoms: No Symptoms, No Dysuria Musculoskeletal: No Symptoms, No Back Pain, No Neck Pain Skin: No Symptoms, No Rash Neurological: No Symptoms, No Dizziness, No Focal Weakness, No Sensory Changes Psychological: No Symptoms Endocrine: No Symptoms Hematologic/Lymphatic: No Symptoms All Other Systems: Reviewed and Negative - Past Medical History Pertinent Past Medical History: Yes Neurological History: Migraines, Seizures ENT History: No Pertinent History Cardiac History: High Cholesterol, Hypertension Respiratory History: No Pertinent History Endocrine Medical History: Other Musculoskeletal History: No Pertinent History GI Medical History: Colitis, Diverticulitis, Other History: No Pertinent History Psycho-Social History: No Pertinent History Female Reproductive Disorders: Other Other Medical History: MASS ON RIGHT OVARY, left oophorectomy, insulin resistant, hashimotos - Past Surgical History Past Surgical History: Yes Neuro Surgical History: No Pertinent History Cardiac: No Pertinent History Respiratory: No Pertinent History Gastrointestinal: Appendectomy, Cholecystectomy, Colon Resection Genitourinary: No Pertinent History Musculoskeletal: No Pertinent History Female Surgical History: Section, Hysterectomy, Other Other Surgical History: left oophorectomy - Social History Smoking Status: Never smoker Exposure to second hand smoke: No Drug Use: none Patient Lives Alone: No - Nursing Vital Signs Nursing Vital Signs: Initial Vital Signs Temperature 98.2 F 03/10/21 14:26 Pulse Rate 87 03/10/21 14:26 Respiratory Rate 18 03/10/21 14:26 Blood Pressure 127/69 03/10/21 14:26 O2 Sat by Pulse Oximetry 98 03/10/21 14:26 Pain Scale Pain Intensity 10 - Physical Exam General Appearance: no apparent distress, alert Eye Exam: PERRL/EOMI, eyes nml inspection Ears, Nose, Throat Exam: normal ENT inspection, pharynx normal, moist mucous membranes Neck Exam: normal inspection, non-tender, supple, full range of motion Respiratory Exam: normal breath sounds, lungs clear, No respiratory distress Cardiovascular Exam: regular rate/rhythm, normal heart sounds Gastrointestinal/Abdomen Exam: soft, tenderness, other (Tenderness to palpation left lower quadrant. Guarding. No rebound. Abdomen is mildly distended.), No mass Back Exam: normal inspection, normal range of motion, No CVA tenderness, No vertebral tenderness Extremity Exam: normal inspection, normal range of motion, pelvis stable Neurologic Exam: alert, oriented x 3, cooperative, normal mood/affect, sensation nml, No motor deficits Skin Exam: normal color, warm, dry SpO2 Interpretation: normal SpO2: 98 O2 Delivery: Room Air - Course Nursing assessment & vital signs reviewed: Yes - CT Exams Abdomen/Pelvis CT Interpretation: Tele-radiologist Report (Left infrahilar calcified node not previously imaged. Mild left hemicolon colonic diverticulosis. Descending colon again demonstrates mild wall thickening with pericolonic stranding favoring diverticulitis. No free fluid or air. Fatty hepatomegaly measuring 26.6 cm and tiny calcified granuloma s) Ordered Tests: Active Orders 24 hr Category Date Time Status IV Insertion STAT Care 03/10/21 14:33 Active ABDOMEN AND PELVIS W CONTRAST [CT] Stat Exams 03/10/21 14:33 Completed CBC W DIFF Stat Lab 03/10/21 14:40 Completed CMP Stat Lab 03/10/21 14:40 Completed CULTURE,URINE Stat Lab 03/10/21 14:40 Received LIPASE Stat Lab 03/10/21 14:40 Completed TROPONIN Q3H Lab 03/10/21 14:40 Completed TROPONIN Q3H Lab 03/10/21 17:45 Ordered TROPONIN Q3H Lab 03/10/21 20:45 Ordered TROPONIN Q3H Lab 03/10/21 23:45 Ordered TROPONIN Q3H Lab 03/11/21 02:45 Ordered UA W/RFX UR CULTURE Stat Lab 03/10/21 14:40 Completed Transfer Order Routine Transfer 03/10/21 Ordered Medication Summary Generic Name Dose Route Start Last Admin Trade Name Rudy PRN Reason Stop Dose Admin Sodium Chloride 1,000 mls @ 100 mls/hr 03/10/21 14:45 03/10/21 14:47 Sodium Chloride 0.9% 1000 Ml IV 04/09/21 14:44 100 mls/hr .Q10H JONAH Administration Discontinued Medications Generic Name Dose Route Start Last Admin Trade Name Rudy PRN Reason Stop Dose Admin Piperacillin Sod/Tazobactam 100 mls @ 200 mls/hr 03/10/21 16:04 03/10/21 16:19 Sod 3.375 gm/ Sodium Chloride IV 03/10/21 16:33 200 mls/hr STAT ONE Administration Sodium Chloride Confirm 03/10/21 16:17 Sodium Chloride 100ml Mini-Bag Plus Administered 03/10/21 16:18 Dose 100 mls @ ud IV .STK-MED ONE Morphine Sulfate 4 mg 03/10/21 14:33 03/10/21 14:47 Morphine Sulfate 4 Mg Inj IV 03/10/21 14:34 4 mg STAT ONE Administration Morphine Sulfate Confirm 03/10/21 14:46 Morphine Sulfate 4 Mg Inj Administered 03/10/21 14:47 Dose 4 mg .ROUTE .STK-MED ONE Morphine Sulfate 4 mg 03/10/21 17:00 Morphine Sulfate 4 Mg Inj IV 03/10/21 17:01 STAT ONE Ondansetron HCl 4 mg 03/10/21 14:33 03/10/21 14:47 Zofran 4 Mg/2 Ml Vial IV 03/10/21 14:34 4 mg STAT ONE Administration Ondansetron HCl Confirm 03/10/21 14:46 Zofran 4 Mg/2 Ml Vial Administered 03/10/21 14:47 Dose 4 mg .ROUTE .STK-MED ONE Piperacillin Sod/Tazobactam Sod Confirm 03/10/21 16:16 Zosyn 3.375 Gm Vial Administered 03/10/21 16:17 Dose 3.375 gm IV .STK-MED ONE Lab/Rad Data: Laboratory Result Diagrams 03/10/21 14:40 03/10/21 14:40 Laboratory Results 03/10/21 03/10/21 03/10/21 Range/Units 16:17 14:40 14:40 WBC (4.0-10.5) K/mm3 RBC (4.1-5.4) M/mm3 Hgb (12.0-16.0) gm/dl Hct (35-47) % MCV (78-100) fl MCH (26-32) pg MCHC (32-36) g/dl RDW (11.5-14.0) % Plt Count (150-450) K/mm3 MPV (7.5-11.0) fl Gran % (36.0-66.0) % Eos # (Auto) (0-0.5) Absolute Lymphs (auto) (1.0-4.6) Absolute Monos (auto) (0.0-1.3) Lymphocytes % (24.0-44.0) % Monocytes % (0.0-12.0) % Eosinophils % (0.00-5.0) % Basophils % (0.0-0.4) % Absolute Granulocytes (1.4-6.9) Basophils # (0-0.4) Sodium 139 (137-145) mmol/L Potassium 3.9 (3.5-5.1) mmol/L Chloride 105 (98-107) mmol/L Carbon Dioxide 23 (22-30) mmol/L Anion Gap 14.8 (5-15) MEQ/L BUN 11 (7-17) mg/dL Creatinine 0.87 (0.52-1.04) mg/dL Estimated GFR > 60.0 ML/MIN Glucose 100 (74-106) mg/dL Calcium 9.5 (8.4-10.2) mg/dL Total Bilirubin 1.70 H (0.2-1.3) mg/dL AST 36 (14-36) U/L ALT 30 (0-35) U/L Alkaline Phosphatase 100 (38-126) U/L Troponin I < 0.012 (0.000-0.034) ng/mL Serum Total Protein 8.1 (6.3-8.2) g/dL Albumin 4.5 (3.5-5.0) g/dL Lipase 246 (23-300) U/L Urine Color (YELLOW) Urine Appearance (CLEAR) Urine pH (5-6) Ur Specific [place] (1.005-1.025) Urine Protein (Negative) Urine Ketones (NEGATIVE) Urine Blood (0-5) Yemi/ul Urine Nitrite (NEGATIVE) Urine Bilirubin (NEGATIVE) Urine Urobilinogen (0-1) mg/dL Ur Leukocyte Esterase (NEGATIVE) Urine WBC (Auto) (0-5) /HPF Urine RBC (Auto) (0-2) /HPF U Hyaline Cast (Auto) (0-2) /LPF U Epithel Cells (Auto) (FEW) /HPF Urine Bacteria (Auto) (NEGATIVE) /HPF Urine Mucus (Auto) (NEGATIVE) /HPF Urine Culture Reflexed (NO) Urine Glucose (NEGATIVE) mg/dL SARS-CoV-2 (PCR) NEGATIVE (NEGATIVE) 03/10/21 03/10/21 Range/Units 14:40 14:40 WBC 12.2 H (4.0-10.5) K/mm3 RBC 4.29 (4.1-5.4) M/mm3 Hgb 12.9 (12.0-16.0) gm/dl Hct 39.4 (35-47) % MCV 91.8 (78-100) fl MCH 30.1 (26-32) pg MCHC 32.7 (32-36) g/dl RDW 13.8 (11.5-14.0) % Plt Count 216 (150-450) K/mm3 MPV 10.5 (7.5-11.0) fl Gran % 67.6 H (36.0-66.0) % Eos # (Auto) 0.18 (0-0.5) Absolute Lymphs (auto) 3.05 (1.0-4.6) Absolute Monos (auto) 0.71 (0.0-1.3) Lymphocytes % 24.9 (24.0-44.0) % Monocytes % 5.8 (0.0-12.0) % Eosinophils % 1.5 (0.00-5.0) % Basophils % 0.2 (0.0-0.4) % Absolute Granulocytes 8.28 H (1.4-6.9) Basophils # 0.02 (0-0.4) Sodium (137-145) mmol/L Potassium (3.5-5.1) mmol/L Chloride (98-107) mmol/L Carbon Dioxide (22-30) mmol/L Anion Gap (5-15) MEQ/L BUN (7-17) mg/dL Creatinine (0.52-1.04) mg/dL Estimated GFR ML/MIN Glucose (74-106) mg/dL Calcium (8.4-10.2) mg/dL Total Bilirubin (0.2-1.3) mg/dL AST (14-36) U/L ALT (0-35) U/L Alkaline Phosphatase (38-126) U/L Troponin I (0.000-0.034) ng/mL Serum Total Protein (6.3-8.2) g/dL Albumin (3.5-5.0) g/dL Lipase (23-300) U/L Urine Color YELLOW (YELLOW) Urine Appearance SLIGHTLY CLOUDY (CLEAR) Urine pH 5.0 (5-6) Ur Specific [place] 1.020 (1.005-1.025) Urine Protein NEGATIVE (Negative) Urine Ketones NEGATIVE (NEGATIVE) Urine Blood MODERATE (0-5) Yemi/ul Urine Nitrite NEGATIVE (NEGATIVE) Urine Bilirubin NEGATIVE (NEGATIVE) Urine Urobilinogen NEGATIVE (0-1) mg/dL Ur Leukocyte Esterase TRACE (NEGATIVE) Urine WBC (Auto) 6-10 (0-5) /HPF Urine RBC (Auto) 0-2 (0-2) /HPF U Hyaline Cast (Auto) 3-5 (0-2) /LPF U Epithel Cells (Auto) FEW (FEW) /HPF Urine Bacteria (Auto) RARE (NEGATIVE) /HPF Urine Mucus (Auto) SLIGHT (NEGATIVE) /HPF Urine Culture Reflexed YES (NO) Urine Glucose NEGATIVE (NEGATIVE) mg/dL SARS-CoV-2 (PCR) (NEGATIVE) - Progress Progress: improved Progress Note: Work-up reveals diverticulitis. Case discussed with Dr. Zhu who accepts admission to observation. Patient is Covid negative. Antibiotics infused. Pain well controlled. Patient agrees to admission [facility] for further evaluation and treatment. 03/10/21 17:36 Will see patient in: hospital (observation) Counseled pt/family regarding: lab results, diagnosis, rad results - Departure Departure Disposition: Observation Clinical Impression: Hilar lymphadenopathy, Diverticulosis, Diverticulitis, Hepatomegaly, Splenomegaly, Renal cyst, left, Aortoiliac calcifications, Leukocytosis Condition: Stable Critical Care Time: No Referrals: ARIAS ZHU [Primary Care Provider] -
[2021-03-10] MEDS ORDERED: Zosyn 3.375 GM Vial 3.375 GM in Sodium Chloride 100ML MINI-BAG PLUS 100 ML IV ONE (16:04)
[2021-03-10] MEDS ORDERED: Zosyn 3.375 GM Vial IV ONE ×2 (16:16→23:17)
[2021-03-10] MEDS ORDERED: Sodium Chloride 100ML MINI-BAG PLUS 100 ML IV ONE ×2 (16:17→23:18)
[2021-03-10] MEDS ORDERED: Zofran 4 MG/2 ML VIAL IV PRN (17:47)
[2021-03-10] MEDS: Zosyn 3.375 GM Vial 3.375 GM in Sodium Chloride 100ML MINI-BAG PLUS 100 ML IV SCH ×2 (17:53→23:53)
[2021-03-10] MEDS: MORPHINE SULFATE 4 MG INJ IV PRN ×2 (17:56→22:09)
[2021-03-10] MEDS: Sodium Chloride 0.9% 1000 ML 1,000 ML IV SCH (18:24)
[2021-03-10] MEDS ORDERED: xanAX 0.5 MG PO PRN (19:12)
[2021-03-10] MEDS: ECOTRIN 81 MG PO SCH (22:08)
[2021-03-10] MEDS: Cozaar 50 MG PO SCH (22:08)
[2021-03-10] MEDS: TOPIRAMATE PO SCH (22:08)
[2021-03-10] MEDS: ZOCOR 20MG PO SCH (22:09)
[2021-03-10] MEDS: ZOLOFT 50 MG TABLET PO SCH (22:09)
[2021-03-11] MEDS: Sodium Chloride 0.9% 1000 ML 1,000 ML IV SCH ×3 (03:21→23:43)
[2021-03-11] MEDS: MORPHINE SULFATE 4 MG INJ IV PRN ×2 (03:36→07:41)
[2021-03-11] MEDS ORDERED: Zosyn 3.375 GM Vial IV ONE (05:24)
[2021-03-11] MEDS ORDERED: Sodium Chloride 100ML MINI-BAG PLUS 100 ML IV ONE (05:25)
[2021-03-11] MEDS: Zosyn 3.375 GM Vial 3.375 GM in Sodium Chloride 100ML MINI-BAG PLUS 100 ML IV SCH ×4 (06:06→23:39)
[2021-03-11 06:17] LABS: Absolute Neutrophil Ct (ANC) 3.38 (1.4-6.9); BASOPHIL % 0.2 % (0.0-0.4); Basophil (Absolute #) 0.01 (0-0.4); Eosinophil % 2.8 % (0.00-5.0); Eosinophil (Absolute #) 0.18 (0-0.5); Hematocrit 35.6 % (35-47); Hemoglobin 11.5 gm/dl (12.0-16.0); Lymphocyte (Absolute #) 2.36 (1.0-4.6); Lymphocytes % 37.1 % (24.0-44.0); Mean Cell Volume 94.7 fl (78-100); Mean Corpuscular Hemoglobin 30.6 pg (26-32); Mean Corpuscular Hgb Concent. 32.3 g/dl (32-36); Mean Platelet Volume 10.4 fl (7.5-11.0); Monocyte (Absolute #) 0.43 (0.0-1.3); Monocytes % 6.8 % (0.0-12.0); Neutrophil % 53.1 % (36.0-66.0); Platelet Count 165 K/mm3 (150-450); Red Blood Count 3.76 M/mm3 (4.1-5.4); White Blood Count 6.4 K/mm3 (4.0-10.5)
[2021-03-11 06:34] LABS: ALBUMIN 3.8 g/dL (3.5-5.0); ALKALINE PHOSPHATASE 76 U/L (38-126); ANION GAP 9.9 MEQ/L (5-15); BLOOD UREA NITROGEN 10 mg/dL (7-17); CHLORIDE 105 mmol/L (98-107); Calcium 8.8 mg/dL (8.4-10.2); Carbon Dioxide 28 mmol/L (22-30); Creatinine 1 0.97 mg/dL (0.52-1.04); EST GLOMERULAR FILTRATION RATE > 60.0 ML/MIN; Glucose 106 mg/dL (74-106); Potassium 4.4 mmol/L (3.5-5.1); SGOT/AST 32 U/L (14-36); SGPT/ALT 29 U/L (0-35); SODIUM 138 mmol/L (137-145); Total Protein 6.8 g/dL (6.3-8.2)
[2021-03-11] MEDS: TOPIRAMATE PO SCH ×2 (09:23→22:01)
[2021-03-11] MEDS: ZOLOFT 50 MG TABLET PO SCH ×2 (09:24→22:01)
[2021-03-11] MEDS: NORCO 7.5/325 MG TAB PO PRN ×3 (12:14→22:01)
[2021-03-11] MEDS: ECOTRIN 81 MG PO SCH (22:01)
[2021-03-11] MEDS: Cozaar 50 MG PO SCH (22:01)
[2021-03-11] MEDS: ZOCOR 20MG PO SCH (22:01)
[2021-03-12] MEDS: Zosyn 3.375 GM Vial 3.375 GM in Sodium Chloride 100ML MINI-BAG PLUS 100 ML IV SCH ×2 (06:04→12:45)
[2021-03-12] MEDS: NORCO 7.5/325 MG TAB PO PRN (06:12)
[2021-03-12 07:04] LABS: Hematocrit 35.1 % (35-47); Hemoglobin 11.1 gm/dl (12.0-16.0); Mean Cell Volume 94.6 fl (78-100); Mean Corpuscular Hemoglobin 29.9 pg (26-32); Mean Corpuscular Hgb Concent. 31.6 g/dl (32-36); Mean Platelet Volume 10.5 fl (7.5-11.0); Platelet Count 187 K/mm3 (150-450); Red Blood Count 3.71 M/mm3 (4.1-5.4); Red Cell Distribution Width 13.8 % (11.5-14.0); White Blood Count 5.8 K/mm3 (4.0-10.5)
[2021-03-12 07:10] LABS: ANION GAP 10.3 MEQ/L (5-15); BLOOD UREA NITROGEN 10 mg/dL (7-17); CHLORIDE 107 mmol/L (98-107); Calcium 8.8 mg/dL (8.4-10.2); Carbon Dioxide 26 mmol/L (22-30); Creatinine 1 1.03 mg/dL (0.52-1.04); EST GLOMERULAR FILTRATION RATE > 60.0 ML/MIN; Glucose 100 mg/dL (74-106); Potassium 3.8 mmol/L (3.5-5.1); SODIUM 140 mmol/L (137-145)
[2021-03-12] MEDS: ZOLOFT 50 MG TABLET PO SCH (09:08)
[2021-03-12] MEDS: TOPIRAMATE PO SCH (09:08)
[2021-03-12 12:01] VITALS: BP 120/80; PULSE 75; O2SAT 91
--- NOTE | 2021-03-12 13:05 | PCM.SSS ---
History of Present Illness - Chief Complaint Chief Complaint: diverticulitis Date: 03/12/21 History of Present Illness: is a 50 year old female. Pt. presented to ER evening after noted some mild nausea and discomfort in the left lower abdomen starting Sunday night, this persisted and got worse through Sunday prompting ER visit, upon visit to ER pt. noted to have a mild elevations of wbc and descending diverticular infection noted on CT, Pt. wanted to stay in hospital for treatment. - Review of Systems Constitutional: No Fever, No Chills Eyes: No Symptoms Ears, Nose, & Throat: No Symptoms Respiratory: No Cough, No Short Of Breath Cardiac: No Chest Pain, No Edema, No Syncope Abdominal/Gastrointestinal: Abdominal Pain, Nausea, No Vomiting, No Diarrhea Genitourinary Symptoms: No Dysuria Musculoskeletal: No Back Pain, No Neck Pain Skin: No Rash Neurological: No Dizziness, No Focal Weakness, No Sensory Changes Psychological: No Symptoms Endocrine: No Symptoms Hematologic/Lymphatic: No Symptoms Immunological/Allergic: No Symptoms Medications & Allergies Home Medications: Home Medication List Sertraline HCl 100 mg [Zoloft 100 MG] 100 mg PO BID 02/18/12 [History Confirmed 03/10/21] Topiramate [Topamax] 100 mg PO BID 07/22/12 [History Confirmed 03/10/21] Losartan Potassium 100 mg PO HS 09/18/17 [History Confirmed 03/10/21] Alprazolam [Xanax] 0.5 mg PO TID PRN 03/10/21 [History Confirmed 03/10/21] Aspirin [Aspirin EC] 81 mg PO HS 03/10/21 [History Confirmed 03/10/21] Simvastatin 20 mg PO HS 03/10/21 [History Confirmed 03/10/21] Amoxicillin/Potassium Clav [Augmentin 875-125 Tablet] 875 mg PO BID 10 Days #20 tablet 03/12/21 [Rx] Hydrocodone/Acetaminophen [Hydrocodone-Acetamin 7.5-325] 1 each PO TIDPRN 4 Days #10 tablet MDD 3 03/12/21 [Rx] Metronidazole 500 mg [Flagyl 500 MG] 500 mg PO TID 10 Days #30 tablet 03/12/21 [Rx] Allergies/Adverse Reactions: Allergies Allergy/AdvReac Type Severity Reaction Status Date / Time tetracycline [Tetracycline] Allergy Intermediate Verified 03/10/21 14:34 - Past Medical History Past Medical History: Yes Neurological History: Migraines ENT History: No Pertinent History Cardiac History: High Cholesterol, Hypertension Respiratory History: No Pertinent History Endocrine Medical History: Other Musculoskelatal History: No Pertinent History GI Medical History: Colitis, Diverticulitis, Other History: No Pertinent History Pyscho-Social History: No Pertinent History Reproductive Disorders: Other Comment: MASS ON RIGHT OVARY, left oophorectomy, insulin resistant, hashimotos - Past Surgical History Past Surgical History: Yes Neuro Surgical History: No Pertinent History Cardiac History: No Pertinent History Respiratory Surgery: No Pertinent History GI Surgical History: Appendectomy, Cholecystectomy, Colon Resection Genitourinary Surgical Hx: No Pertinent History Musculskeletal Surgical Hx: No Pertinent History Female Surgical History: Section, Hysterectomy, Other Other Surgical History: left oophorectomy - Social History Smoking Status: Never smoker Exposure to second hand smoke: No Alcohol: None Drug Use: none - Physical Exam Vital Signs: Vital Signs - 24 hr Temp Pulse Resp BP Pulse Ox 03/12/21 11:59 98.0 F 75 20 120/80 91 L 03/12/21 07:37 99.3 F 63 18 103/51 95 03/12/21 04:00 97.4 F 71 20 90/52 96 03/12/21 00:00 99.0 F 75 20 100/55 97 03/11/21 19:34 98.5 F 74 17 133/59 96 03/11/21 16:00 98.1 F 76 20 128/60 96 General Appearance: no apparent distress, alert Neurologic Exam: alert, cooperative, normal mood/affect, nml cerebellar function, sensation nml, No motor deficits Eye Exam: PERRL/EOMI, eyes nml inspection Ears, Nose, Throat Exam: normal ENT inspection, TMs normal, pharynx normal, moist mucous membranes Neck Exam: normal inspection, non-tender, supple, full range of motion Respiratory Exam: normal breath sounds, lungs clear, No respiratory distress Cardiovascular Exam: regular rate/rhythm, normal heart sounds, normal peripheral pulses Gastrointestinal/Abdomen Exam: soft, normal bowel sounds, tenderness, No distention, No mass, No guarding, No hepatomegaly, No organomegaly, No splenomegaly Pelvic Exam: not done Rectal Exam: deferred Back Exam: normal inspection, normal range of motion, No CVA tenderness, No vertebral tenderness Extremity Exam: normal inspection, normal range of motion, pelvis stable Skin Exam: normal color, warm, dry, No rash Lymphatic Exam: No adenopathy Results - Labs Lab/Micro Results: Lab Results-Last 24 Hours 03/12/21 03/12/21 03/12/21 Range/Units 05:30 05:53 05:53 WBC 5.8 (4.0-10.5) K/mm3 RBC 3.71 L (4.1-5.4) M/mm3 Hgb 11.1 L (12.0-16.0) gm/dl Hct 35.1 (35-47) % MCV 94.6 (78-100) fl MCH 29.9 (26-32) pg MCHC 31.6 L (32-36) g/dl RDW 13.8 (11.5-14.0) % Plt Count 187 (150-450) K/mm3 MPV 10.5 (7.5-11.0) fl Sodium 140 (137-145) mmol/L Potassium 3.8 (3.5-5.1) mmol/L Chloride 107 (98-107) mmol/L Carbon Dioxide 26 (22-30) mmol/L Anion Gap 10.3 (5-15) MEQ/L BUN 10 (7-17) mg/dL Creatinine 1.03 (0.52-1.04) mg/dL Estimated GFR > 60.0 ML/MIN Glucose 100 (74-106) mg/dL Calcium 8.8 (8.4-10.2) mg/dL Magnesium 2.4 H (1.6-2.3) mg/dL Microbiology 03/10/21 14:40 Urine Culture - Final Urine, Void <10K NORMAL SKIN NEHA PROBABLE SKIN CONTAMINANT - Radiology Impressions Radiology Exams & Impressions: Radiology Procedures Category Date Time Status ABDOMEN AND PELVIS W CONTRAST [CT] Stat Exams 03/10/21 14:33 Completed Assessment/Plan (1) Diverticulitis Current Visit: Yes Status: Acute Assessment & Plan: Admitted for iv antibiotics and pain control Code(s): K57.92 - DVTRCLI OF INTEST, PART UNSP, W/O PERF OR ABSCESS W/O BLEED Hospital Summary - Hospital Course Hospital Course: Pt. labs were normalized by the next morning. Pt. noted still having significant pain, pain medication was changed from iv to po and diet was advanced as tolerated. By Sunday morning pain was better controlled and labs were still normal and it was felt the patient is in good position for discharge to home with continued oral antibiotics and a few days of pain medication. - Vitals & Intake/Output Vital Signs: Vital Signs Temperature 98.0 F 03/12/21 11:59 Pulse Rate 75 03/12/21 11:59 Respiratory Rate 20 03/12/21 11:59 Blood Pressure 120/80 03/12/21 11:59 O2 Sat by Pulse Oximetry 91 L 03/12/21 11:59 Intake & Output: Intake & Output 03/10/21 03/11/21 03/12/21 03/13/21 11:59 11:59 11:59 11:59 Intake Total 1914 4434 Output Total 1450 4050 Balance 464 384 Weight 130.3 kg - Lab Result Diagrams: 03/12/21 05:53 03/12/21 05:53 Lab Results-Last 24 Hrs: Lab Results-Last 24 Hours 03/12/21 03/12/21 03/12/21 Range/Units 05:30 05:53 05:53 WBC 5.8 (4.0-10.5) K/mm3 RBC 3.71 L (4.1-5.4) M/mm3 Hgb 11.1 L (12.0-16.0) gm/dl Hct 35.1 (35-47) % MCV 94.6 (78-100) fl MCH 29.9 (26-32) pg MCHC 31.6 L (32-36) g/dl RDW 13.8 (11.5-14.0) % Plt Count 187 (150-450) K/mm3 MPV 10.5 (7.5-11.0) fl Sodium 140 (137-145) mmol/L Potassium 3.8 (3.5-5.1) mmol/L Chloride 107 (98-107) mmol/L Carbon Dioxide 26 (22-30) mmol/L Anion Gap 10.3 (5-15) MEQ/L BUN 10 (7-17) mg/dL Creatinine 1.03 (0.52-1.04) mg/dL Estimated GFR > 60.0 ML/MIN Glucose 100 (74-106) mg/dL Calcium 8.8 (8.4-10.2) mg/dL Magnesium 2.4 H (1.6-2.3) mg/dL Micro Results-Entire Visit: Microbiology 03/10/21 14:40 Urine Culture - Final Urine, Void <10K NORMAL SKIN NEHA PROBABLE SKIN CONTAMINANT - Radiology Exams Ordered Rad Exams-Entire Visit: Radiology Procedures Category Date Time Status ABDOMEN AND PELVIS W CONTRAST [CT] Stat Exams 03/10/21 14:33 Completed - Discharge Discharge Date: 03/12/21 Disposition: Home, Self-Care Condition: Stable Prescriptions: No Action Sertraline HCl 100 mg [Zoloft 100 MG] 100 mg PO BID Topiramate [Topamax] 100 mg PO BID Losartan Potassium 100 mg PO HS Simvastatin 20 mg PO HS Alprazolam [Xanax] 0.5 mg PO TID PRN PRN Reason: Anxiety Aspirin [Aspirin EC] 81 mg PO HS Follow up with: ARIAS ZHU [Primary Care Provider] -
== END 2021-03-12 14:15 | disposition home or self-care (01) ==
LOC: ED 14:14 → MED SURG 17:46
PROVIDERS: ADMIT Family Medicine; ATTEND Family Medicine
DX: K57.32 Diverticulitis of large intestine without perforation or abscess without bleeding (principal); Z79.899 Other long term (current) drug therapy; I10 Essential (primary) hypertension; E78.00 Pure hypercholesterolemia, unspecified; Z20.828 Contact with and (suspected) exposure to other viral communicable diseases
CPT/HCPCS: 36000; 36415; 74177; 80048; 80053; 81001; 83690; 83735; 84484; 85025; 85027; 87086; 96360; 96365; 96374; 96375; 99285; G0378; U0003; J2270; J2405; A9270-GY

== ENCOUNTER 2021-04-20 13:49 | Day surgery (SDC) | payer BC ==
[2013-06-03 12:16] VITALS: BP 156/84
[2021-04-20] MEDS ORDERED: Depo-Medrol 40 MG/ML IM ONE (13:50)
[2021-04-20] MEDS ORDERED: Sodium Chloride 0.9(Preservative Free) 10 ML IJ ONE (13:50)
[2021-04-20] MEDS ORDERED: Lactated Ringers 1,000 ML IV ONE (14:57)
[2021-04-20] MEDS ORDERED: DIPRIVAN 200 MG/20 ML IV ONE (15:53)
--- NOTE | 2021-04-20 16:53 | XRAY ---
29 seconds fluoroscopy time in surgery for right L3-L5 transforaminal NAVIN.
--- NOTE | 2021-04-20 16:55 | XRAY ---
Indication: Right L3-L5 transforaminal NAVIN. Intraoperative fluoroscopy provided for 29 seconds. 5 digital spot images submitted for interpretation demonstrates posterior needle tips projecting over the expected right L3 and L4 nerve roots. Small amount of contrast injected for needle tip placement. Correlate with intraoperative findings/report.
== END 2021-04-20 16:20 | disposition home or self-care (01) ==
LOC: SDC-PAIN 13:49
PROVIDERS: ATTEND Psychiatry & Neurology Pain Medicine
DX: M54.16 Radiculopathy, lumbar region (principal); Z79.899 Other long term (current) drug therapy
CPT/HCPCS: 64483; 64484; 72100; 77003; J1030; J2704; Q9966